=== PATIENT | female | born 1970 | race Two or more races ===

== ENCOUNTER 2024-09-04 09:15 | Outpatient (AMB) | payer MEDICAID, SELFPAY ==
[2024-09-04 09:28] VITALS: BP 146/86; PULSE 70; RESP 18; TEMP 36.3; O2SAT 96; BMI 27.3
--- NOTE | 2024-09-04 09:28 | PD.ORTHCLVIS ---
Vital signs 09/04/24 09:28 Height 1.45 m Height Method Stated Weight 57.323 kg Weight Measurement Method Standing Scale BMI 27.3 BP 146/86 H Blood Pressure Source Automatic Cuff Blood Pressure Location Left Upper Arm Position Sitting Respiration 18 Pulse 70 Pulse Source Monitor Temp 97.4 F Temp Source Temporal Artery Scan Pulse Oximetry (%) 96 Oxygen Delivery Method Room Air Med/Allergies Allergies & Medications Allergies No Known Allergies Allergy (Verified 09/04/24 09:29) Medication Reconciliation meloxicam 7.5 mg tablet 7.5 mg PO QDAY #45 tabs 09/04/24 [Rx] Exam Exam Patient is in no acute distress and is cooperative with the examination today. Breathing is nonlabored. In no respiratory distress. Bilateral extremities were evaluated and demonstrates sensation intact to light touch. Palpable pedal pulses are present. No significant edema is present. Bilateral hips were examined. The patient has no pain with log roll of the hips. Internal rotation to 30 degrees and external rotation to 30 degrees is painless. Negative FADIR. The left knee was examined. The left knee is in varus alignment. Range of motion from 0-115 degrees. Knee is stable to varus and valgus as well as AP translation with <5mm. Patient has a negative McMurrays. There is no pain with patellofemoral compression and no crepitus noted. The knee is tender to palpation medially. The right knee was also examined. The right knee is in varus alignment. Range of motion from 0-120 degrees. Knee is stable to varus and valgus as well as AP translation with <5mm. Patient has a negative McMurrays. There is no pain with patellofemoral compression and no crepitus noted. The knee is tender to palpation medially. Assessment and Plan Problem List (1) Degenerative arthritis of knee, bilateral: Status: Acute Plan: Patient is a 54-year-old female with bilateral knee pain and bilateral knee arthritis. We discussed nonoperative and operative options. We would like need to see x-rays as it has been quite a while since her previous ones. She would need weightbearing x-rays. We discussed different treatment options depending on what that shows but she has tried significant conservative treatment Office Procedures GNS Level of Care Nursing/Assessment Patient Status: Initial/New Patient Nursing Assessment/Reassesment: Medication Reconciliation, Update PMH in EMR and Vital Signs Coordination of Care: Complex Care and Chronic Disease 1-5, Education Complex Pt/Fam, 1 Ins Authorization, Lab and Imaging orders, Results/Orders obtained and Staff clarify orders New Patient Charge New Patient Point Assignment: 1119 New Patient Point Charge: STILL OPERATOR BATCH OR CONTINUOUS Level 4 (3838-1005) MA Intake Visit Data Collection New Patient or Established: New Patient (never been to [facility]) Reason for Visit:: BILATERAL KNEE PAIN Seen by Clinical Staff ONLY (RN/MA): No Comic Illustrator Required: Yes PCP or OBGYN visit in last 3 months: Yes Hx Now: No Do You Feel Safe at Home: Yes Authorities Contacted: N/A Questionairres Past Medical History Past Medical History Have you ever been diagnosed with any of the following: Cardiology Problems Hypertension: Yes Endocrine Problems Diabetes Mellitus Type 2: Yes Subjective Visit Visit for: new patient and knee (BILATERIAL) Immunization / Flu Flu Vaccine in the Last 12 Months: Yes Flu Vaccine Exclusion Criteria: Already Received History of Present Illness Chief complaint: bilateral knee pain Patient is a pleasant 54-year-old female with bilateral knee pain and bilateral knee arthritis. The pain has been ongoing for several years. She is tried several injections. The last injections that worked for a month or less. She does have varus deformity of her right knee. She used to work in the [employer] for quite a while. She has tried some anti-inflammatories. Personal History Red flag PMH: none Pain Pain level (0-10): 8 Pain duration: WITH MOVEMNET Pain location: inside (medial), outside (lateral) and posterior Pain quality: sharp and aching Pain timing: night, increases with activity and stairs Associated signs & symptoms: weakness Ambulatory data Ambulatory device: none Treatments Improvement with previous injections: Yes Improvement with PT: No Improvement with NSAIDS: n/a Review of Systems Review of Systems: All systems negative unless otherwise noted in HPI.
--- NOTE | 2024-09-04 09:44 | XR_ITS ---
Examination: Bilateral AP knees single view AP lateral right knee left knee 4 views Bilateral axial knees single view Technique: Bilateral AP knees standing single view Standing AP lateral right and left knees 4 views Bilateral AP knees standing single view total 6 views Bilateral AP knees single view Exam date and time: August 27, 2024 0951 hrs. Indications: Knee pain years Findings: Moderate osteopenia Advanced narrowing medial joint space right knee Moderate to advanced osteoarthritis right patellofemoral joint No patellar dislocation Severe narrowing [id number] medial joint space left knee Severe osteoarthritis left patellofemoral joint Impression: Advanced narrowing medial joint space right knee Severe narrowing [id number] medial joint space left knee Severe osteoarthritis left patellofemoral joint
== END 2024-09-04 10:13 | disposition home or self-care (01) ==
PROVIDERS: PCP Licensed Vocational Nurse; Referring Provider Licensed Vocational Nurse; Supervising Provider Orthopaedic Surgery Adult Reconstructive Orthopaedic Surgery; Visit Provider Orthopaedic Surgery Adult Reconstructive Orthopaedic Surgery
DX: M17.0 Bilateral primary osteoarthritis of knee (principal)
CPT/HCPCS: 73564; 99204; G0463

== ENCOUNTER 2024-09-25 10:44 | Outpatient (AMB) | payer MEDICAID, SELFPAY ==
[2024-09-25 11:23] VITALS: BP 135/82; PULSE 72; RESP 19; TEMP 36; O2SAT 99; BMI 26.6
--- NOTE | 2024-09-25 11:23 | ORTHONT_ITS ---
Vital signs 09/25/24 11:23 Height 1.45 m Height Method Stated Weight 56.047 kg Weight Measurement Method Standing Scale BMI 26.6 BP 135/82 H Blood Pressure Source Automatic Cuff Blood Pressure Location Right Upper Arm Position Sitting Respiration 19 Pulse 72 Pulse Source Monitor Temp 96.8 F Temp Source Temporal Artery Scan Pulse Oximetry (%) 99 Oxygen Delivery Method Room Air Med/Allergies Allergies & Medications Allergies No Known Allergies Allergy (Verified 09/25/24 11:23) Medication Reconciliation meloxicam 7.5 mg tablet 7.5 mg PO QDAY #45 tabs 09/04/24 [Rx Confirmed 09/25/24] Exam Exam Patient is in no acute distress and is cooperative with the examination today. Breathing is nonlabored. In no respiratory distress. Bilateral extremities were evaluated and demonstrates sensation intact to light touch. Palpable pedal pulses are present. No significant edema is present. Bilateral hips were examined. The patient has no pain with log roll of the hips. Internal rotation to 30 degrees and external rotation to 30 degrees is painless. Negative FADIR. The left knee was examined. The left knee is in varus alignment. Range of motion from 0-115 degrees. Knee is stable to varus and valgus as well as AP translation with <5mm. Patient has a negative McMurrays. There is no pain with patellofemoral compression and no crepitus noted. The knee is tender to palpation medially. The right knee was also examined. The right knee is in varus alignment. Range of motion from 0-120 degrees. Knee is stable to varus and valgus as well as AP translation with <5mm. Patient has a negative McMurrays. There is no pain with patellofemoral compression and no crepitus noted. The knee is tender to palpation medially. Bilateral knee x-rays were reviewed. This demonstrates complete joint space obliteration of the medial joint space on the left with very impressive varus deformity. On the right she has varus deformity and mild to moderate arthritis as well. Assessment and Plan Problem List (1) Degenerative arthritis of knee, bilateral: Status: Acute Plan: Patient is a 54-year-old female with bilateral knee pain and bilateral knee arthritis. We discussed nonoperative options she is failed conservative treatment including injections and anti-inflammatories. We thus discussed total knee replacement is a reasonable option. The left side is significantly worse and we will start on this side The nature and purpose of the total knee replacement, alternative method(s) of treatment, the material risks involved, and the possibility of complications we re fully explained to the patient. The patient does NOT have any of the following contraindications to TKA: - Active infection of the knee joint, OR - Active systemic bacteremia, OR - Active skin infection or open wound at surgical site, OR - Neuropathic arthritis, OR - Severe, rapidly progressive neurological disease, OR - Severe medical condition that makes risks of surgery outweigh the potential benefit The patient was told the most common risks and complications associated with a total knee replacement include, but are not limited to: blood clots in the leg, fatal pulmonary embolism, dislocation of the prosthesis, intraoperative and postoperative fractures of the femur or tibia, infection, failure of the prosthesis or grafting materials, complications from anesthesia, reactions to blood transfusions, postoperative leg length inequality, instability of the knee replacement, nerve damage or injury, vascular injury, delayed wound healing, infection, other injury or even . In addition, there are risks associated with anesthesia given during this operation. Also, the patient was told that after undergoing a total knee replacement there may still be persistent pain or disability. The patient was informed that the success of this operation in part depends upon the mechanical devices which are going to be implanted and that these devices can fail or malfunction, and may need to be repaired or replaced and there are no guarantees as to the longevity of this device or its parts and that it or its parts could fail prematurely. The patient was also notified that during the course of surgery, there may be a need to use bone graft from donors, and that any bone graft used will be carefully screened for communicable diseases, including AIDS, hepatitis, Jonathan-Creutzfeldt, or other diseases, but despite the screening procedures, there is a small chance that they could contract one of these diseases. Finally, the patient was asked to follow completely and fully with all advice and recommended treatments, and that recovery and ultimate outcome are affected by their compliance with recommended treatment. We discussed the risks, benefits and treatment alternatives, and the patient is interested in proceeding with surgery. We will try to set this up as expeditiously as possible. Office Procedures GNS Level of Care Nursing/Assessment Patient Status: Established Patient Nursing Assessment/Reassesment: Medication Reconciliation, Update PMH in EMR and Vital Signs Coordination of Care: Complex Care and Chronic Disease 1-5, Education Complex Pt/Fam, Consent,records obtained, informed consent, Results/Orders obtained and Staff clarify orders Special Needs: Language special needs Established Patient Charge Established Patient Point Assignment: 95 Established Patient Point Charge: EP Level 3 (80-115) MA Intake Visit Data Collection New Patient or Established: Established Patient (seen at [facility] within 3 years) Reason for Visit:: X RESULTS Seen by Clinical Staff ONLY (RN/MA): No Verbal consent obtained for Telemed visit?: No Patient Care Associate Required: Yes PCP or OBGYN visit in last 3 months: Yes Hx Now: No Do You Feel Safe at Home: Yes Authorities Contacted: N/A Questionairres Past Medical History Past Medical History Have you ever been diagnosed with any of the following: Cardiology Problems Hypertension: Yes Endocrine Problems Diabetes Mellitus Type 2: Yes Subjective Visit Visit for: follow up visit and knee Immunization / Flu Flu Vaccine in the Last 12 Months: Yes Flu Vaccine Exclusion Criteria: Already Received History of Present Illness Chief complaint: BILATERAL KNEE PAIN Patient is a pleasant 54-year-old female with bilateral knee pain and bilateral knee arthritis. The pain has been ongoing for several years. She is tried several injections. The last injections that worked for a month or less. She does have varus deformity of both knees but the left knee does hurt more. She used to work in the [employer] for quite a while. She has tried some anti- inflammatories. Personal History Red flag PMH: none Pain Pain level (0-10): 3 Pain duration: COMES AND GOES Pain location: inside (medial), outside (lateral) and posterior Pain quality: sharp and aching Pain timing: night, increases with activity and stairs Associated signs & symptoms: weakness Ambulatory data Ambulatory device: none Treatments Improvement with previous injections: No Improvement with PT: No Improvement with NSAIDS: n/a Review of Systems Review of Systems: All systems negative unless otherwise noted in HPI.
== END 2024-09-25 11:49 | disposition home or self-care (01) ==
LOC: HODSRG 10:44
PROVIDERS: PCP Licensed Vocational Nurse; Referring Provider Licensed Vocational Nurse; Supervising Provider Orthopaedic Surgery Adult Reconstructive Orthopaedic Surgery; Visit Provider Orthopaedic Surgery Adult Reconstructive Orthopaedic Surgery
DX: M17.0 Bilateral primary osteoarthritis of knee (principal); E11.9 Type 2 diabetes mellitus without complications; I10 Essential (primary) hypertension; M21.161 Varus deformity, not elsewhere classified, right knee; M21.162 Varus deformity, not elsewhere classified, left knee
CPT/HCPCS: 99213; G0463

== ENCOUNTER 2025-06-24 10:34 | Outpatient (AMB) | payer MEDICAID, SELFPAY ==
--- NOTE | 2025-06-24 11:17 | ORTHONT_ITS ---
Vital signs 06/24/25 11:22 Height 1.45 m Height Method Stated Weight 58.202 kg Weight Measurement Method Standing Scale BMI 27.6 BP 168/95 H Blood Pressure Source Automatic Cuff Blood Pressure Location Left Upper Arm Position Sitting Respiration 18 Pulse 75 Pulse Source Monitor Temp 97.8 F Temp Source Temporal Artery Scan Pulse Oximetry (%) 98 Oxygen Delivery Method Room Air Med/Allergies Allergies & Medications Allergies No Known Allergies Allergy (Verified 06/24/25 11:23) Medication Reconciliation meloxicam 7.5 mg tablet 7.5 mg PO QDAY #45 tabs 09/04/24 [Rx Confirmed 06/24/25] Exam Exam Patient is in no acute distress and is cooperative with the examination today. Breathing is nonlabored. In no respiratory distress. Bilateral extremities were evaluated and demonstrates sensation intact to light touch. Palpable pedal pulses are present. No significant edema is present. Bilateral hips were examined. The patient has no pain with log roll of the hips. Internal rotation to 30 degrees and external rotation to 30 degrees is painless. Negative FADIR. The left knee was examined. The left knee is in varus alignment. Range of motion from 0-115 degrees. Knee is stable to varus and valgus as well as AP translation with <5mm. Patient has a negative McMurrays. There is no pain with patellofemoral compression and no crepitus noted. The knee is tender to palpation medially. The right knee was also examined. The right knee is in varus alignment. Range of motion from 0-120 degrees. Knee is stable to varus and valgus as well as AP translation with <5mm. Patient has a negative McMurrays. There is no pain with patellofemoral compression and no crepitus noted. The knee is tender to palpation medially. Bilateral knee x-rays were reviewed. This demonstrates complete joint space obliteration of the medial joint space on the left with very impressive varus deformity. On the right she has varus deformity and mild to moderate arthritis as well. Assessment and Plan Problem List (1) Degenerative arthritis of knee, bilateral: Status: Acute Plan: Patient is a 54-year-old female with bilateral knee pain and bilateral knee arthritis. We discussed nonoperative options she is failed conservative treatment including injections and anti-inflammatories. We thus discussed total knee replacement is a reasonable option. The left side is significantly worse and we will start on this side The nature and purpose of the total knee replacement, alternative method(s) of treatment, the material risks involved, and the possibility of complications wer e fully explained to the patient. The patient does NOT have any of the following contraindications to TKA: - Active infection of the knee joint, OR - Active systemic bacteremia, OR - Active skin infection or open wound at surgical site, OR - Neuropathic arthritis, OR - Severe, rapidly progressive neurological disease, OR - Severe medical condition that makes risks of surgery outweigh the potential benefit The patient was told the most common risks and complications associated with a total knee replacement include, but are not limited to: blood clots in the leg, fatal pulmonary embolism, dislocation of the prosthesis, intraoperative and postoperative fractures of the femur or tibia, infection, failure of the prosthesis or grafting materials, complications from anesthesia, reactions to blood transfusions, postoperative leg length inequality, instability of the knee replacement, nerve damage or injury, vascular injury, delayed wound healing, infection, other injury or even . In addition, there are risks associated with anesthesia given during this operation. Also, the patient was told that after undergoing a total knee replacement there may still be persistent pain or disability. The patient was informed that the success of this operation in part depends upon the mechanical devices which are going to be implanted and that these devices can fail or malfunction, and may need to be repaired or replaced and there are no guarantees as to the longevity of this device or its parts and that it or its parts could fail prematurely. The patient was also notified that during the course of surgery, there may be a need to use bone graft from donors, and that any bone graft used will be carefully screened for communicable diseases, including AIDS, hepatitis, Jonathan-Creutzfeldt, or other diseases, but despite the screening procedures, there is a small chance that they could contract one of these diseases. Finally, the patient was asked to follow completely and fully with all advice and recommended treatments, and that recovery and ultimate outcome are affected by their compliance with recommended treatment. We discussed the risks, benefits and treatment alternatives, and the patient is interested in proceeding with surgery. We will try to set this up as expeditiously as possible. Office Procedures GNS Level of Care Nursing/Assessment Patient Status: Established Patient Nursing Assessment/Reassesment: Medication Reconciliation, Update PMH in EMR and Vital Signs Coordination of Care: Complex Care and Chronic Disease 1-5, Education Complex Pt/Fam, Consent,records obtained, informed consent, Results/Orders obtained and Staff clarify orders Special Needs: Language special needs Established Patient Charge Established Patient Point Assignment: 95 Established Patient Point Charge: EP Level 3 (80-115) MA Intake Visit Data Collection New Patient or Established: Established Patient (seen at [facility] within 3 years) Reason for Visit:: PRE OP L TKA Seen by Clinical Staff ONLY (RN/MA): No Verbal consent obtained for Telemed visit?: No 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 PCP or OBGYN visit in last 3 months: Yes Hx Now: No Do You Feel Safe at Home: Yes Authorities Contacted: N/A Questionairres Past Medical History Past Medical History Have you ever been diagnosed with any of the following: Cardiology Problems Hypertension: Yes Endocrine Problems Diabetes Mellitus Type 2: Yes Subjective Visit Visit for: follow up visit and knee Immunization / Flu Flu Vaccine in the Last 12 Months: Yes Flu Vaccine Exclusion Criteria: Already Received History of Present Illness Chief complaint: BILATERAL KNEE PAIN Patient is a pleasant 54-year-old female with bilateral knee pain and bilateral knee arthritis. The pain has been ongoing for several years. She is tried several injections. The last injections that worked for a month or less. She does have varus deformity of both knees but the left knee does hurt more. She used to work in the [employer] for quite a while. She has tried some anti- inflammatories. Personal History Red flag PMH: none Additional comments: WALKER GIVEN/CT ORDER GIVEN PT WAS NEVER SCHEDULED Pain Pain level (0-10): 3 Pain duration: COMES AND GOES Pain location: inside (medial), outside (lateral) and posterior Pain quality: sharp and aching Pain timing: night, increases with activity and stairs Associated signs & symptoms: weakness Ambulatory data Ambulatory device: none Treatments Improvement with previous injections: No Improvement with PT: No Improvement with NSAIDS: n/a Review of Systems Review of Systems: All systems negative unless otherwise noted in HPI.
[2025-06-24 11:22] VITALS: BP 168/95; PULSE 75; RESP 18; TEMP 36.6; O2SAT 98; BMI 27.6
== END 2025-06-24 11:30 | disposition home or self-care (01) ==
PROVIDERS: PCP Licensed Vocational Nurse; Referring Provider Licensed Vocational Nurse; Supervising Provider Orthopaedic Surgery Adult Reconstructive Orthopaedic Surgery; Visit Provider Orthopaedic Surgery Adult Reconstructive Orthopaedic Surgery
DX: M17.0 Bilateral primary osteoarthritis of knee (principal); M21.161 Varus deformity, not elsewhere classified, right knee; M21.162 Varus deformity, not elsewhere classified, left knee
CPT/HCPCS: 99213; G0463

== ENCOUNTER → 2025-06-24 | Outpatient (CLI) | payer MEDICAID, SELFPAY ==
--- NOTE | 2025-06-24 12:55 | XR_ITS ---
Examination: CT left lower extremity, without contrast. 2-D sagittal reconstructions. 2-D coronal reconstructions. 3-D reconstructions. Date and time of exam: June 24, 2025, 1313 hours INDICATIONS: Diagnosis unilateral primary osteoarthritis left knee left knee pain 20 years CTDI: vol (mGy): 9.46 DLP: (mGycm): 617 Technique: Multiple 1.25 mm axial sections of the left lower extremity without intravenous contrast have been obtained. 2-D sagittal and coronal reconstructions have been obtained. 3-D reconstructions have been obtained. Low dose protocols were performed. One or more of the following dose reduction techniques were used; automated exposure control, adjustment of the mA and/or KV according to patient size, use of iterative reconstruction technique. Findings: Significant osteopenia Mild narrowing left hip joint No left hip fracture or dislocation Left knee tricompartment osteoarthritis, severe narrowing medial joint space No fracture IMPRESSION: Advanced left knee tricompartment osteoarthritis including severe narrowing medial joint space
== END | disposition home or self-care (01) ==
LOC: CCTX 11:58
PROVIDERS: Referring Provider Orthopaedic Surgery Adult Reconstructive Orthopaedic Surgery; Visit Provider Orthopaedic Surgery Adult Reconstructive Orthopaedic Surgery
DX: M17.12 Unilateral primary osteoarthritis, left knee (principal); M25.862 Other specified joint disorders, left knee
CPT/HCPCS: 73700